=== PATIENT | male | born 1980 | race Two or more races ===

== ENCOUNTER 2018-05-26 09:06 | Emergency (ER) | payer OTHER ==
[~2018-05-26] VITALS: Ht 167.6 cm; Wt 89.0 kg
[2018-05-26 09:12] VITALS: BP 177/102
== END 2018-05-26 10:03 | disposition home or self-care (01) ==
LOC: ED 09:57
DX: L20.9 Atopic dermatitis, unspecified (principal); L20.84 Intrinsic (allergic) eczema
CPT/HCPCS: 99283